=== PATIENT | female | born 1990 | race Caucasian/White ===

== ENCOUNTER 2016-06-13 03:05 | Inpatient (IN) | payer BC, MEDICAID ==
[~2016-06-13] VITALS: Ht 170.2 cm; Wt 109.5 kg
[2016-06-13] MEDS ORDERED: PREN-59 PO (03:24)
[2016-06-13] MEDS ORDERED: OXYTOCIN 30U/ 0.9% NaCL 500ML 500 ML IV ONE (03:25)
[2016-06-13] MEDS ORDERED: FENTANYL PF 100 MCG/2ML IVPush PRN (03:30)
[2016-06-13] MEDS ORDERED: FENTANYL PF 100 MCG/2ML IV PRN (03:30)
[2016-06-13] MEDS ORDERED: ONDANSETRON 2MG/ML, 2ML IVPush PRN ×2 (03:30→21:00)
[2016-06-13] MEDS ORDERED: TERBUTALINE 1 MG/ML, 1ML IVPush PRN (03:30)
[2016-06-13] MEDS ORDERED: CALCIUM CARBONATE 500 MG TAB.CHEW PO PRN ×2 (03:30→20:30)
[2016-06-13] MEDS: LACTATED RINGERS 1,000 ML IV SCH ×8 (03:35→20:49)
[2016-06-13 04:05] LABS: HEMOGLOBIN 10.4 g/dL (11.7-16.4)
[2016-06-13] MEDS ORDERED: NEWBORN KIT ONE (04:15)
[2016-06-13] MEDS ORDERED: OXYTOCIN 30U/ 0.9% NaCL 500ML 500 ML ONE (04:15)
[2016-06-13] MEDS: D5%-LACTATED RINGERS 1,000 ML IV SCH ×3 (07:14→19:25)
[2016-06-13] MEDS ORDERED: FENTANYL PF 100 MCG/2ML ONE ×2 (07:31→09:32)
[2016-06-13] MEDS ORDERED: LIDOCAINE 1%, 20ML ONE (07:32)
[2016-06-13] MEDS ORDERED: MISOPROSTOL 200 MCG TABLET ONE (07:32)
[2016-06-13] MEDS ORDERED: OXYTOCIN 30U/ 0.9% NaCL 500ML 500 ML IV PRN (08:50)
[2016-06-13] MEDS ORDERED: FENTANYL/BUPIV./NS/PF 250 ML EPIDCONT SCH (09:08)
[2016-06-13] MEDS: LACTATED RINGERS 1,000 ML IVBOLUS PRN ×2 (09:12→18:26)
[2016-06-13] MEDS ORDERED: BUPIVACAINE 0.25% ONE ×3 (09:32→18:56)
[2016-06-13] MEDS: AMPICILLIN 2 GM in SODIUM CHLORIDE 0.9% 100 ML IV SCH ×2 (16:53→23:00)
[2016-06-13] MEDS ORDERED: AMPICILLIN 2 GM in SODIUM CHLORIDE 0.9% 100 ML IV SCH (17:00)
[2016-06-13] MEDS: OXYTOCIN 30U/ 0.9% NaCL 500ML 500 ML IV SCH ×2 (19:01→20:16)
[2016-06-13] MEDS ORDERED: METOCLOPRAMIDE 5 MG/ML, 2ML ONE (19:02)
[2016-06-13] MEDS ORDERED: SODIUM CITRATE/CITRIC ACID 30 ML UDC ONE (19:02)
[2016-06-13] MEDS ORDERED: SODIUM CITRATE/CITRIC ACID 30 ML UDC PO ONE (19:30)
[2016-06-13] MEDS ORDERED: METOCLOPRAMIDE 5 MG/ML, 2ML IV ONE (19:30)
[2016-06-13] MEDS ORDERED: morphine SULFATE/PF 0.5 MG/ML, 10ML ONE (19:43)
[2016-06-13] MEDS ORDERED: MISOPROSTOL 200 MCG TABLET PR PRN (20:30)
[2016-06-13] MEDS ORDERED: ONDANSETRON 2MG/ML, 2ML IV PRN (20:30)
[2016-06-13] MEDS ORDERED: morphine SULFATE 10 MG/ML, 1ML IVPush PRN ×2 (20:30)
[2016-06-13] MEDS ORDERED: OXYcodone IR 5MG TABLET PO PRN (20:30)
[2016-06-13] MEDS ORDERED: MEPERIDINE/PF 50 MG/ML IVPush PRN (20:30)
[2016-06-13] MEDS: KETOROLAC 30 MG/1 ML IV SCH (20:30)
[2016-06-13] MEDS ORDERED: MEPERIDINE/PF 100 MG/ML IVPush PRN (20:30)
[2016-06-13] MEDS ORDERED: ACETAMINOPHEN 325 MG TABLET PO PRN ×2 (20:30)
[2016-06-13] MEDS ORDERED: METHYLERGONOVINE 0.2 MG/ML IM PRN (20:30)
[2016-06-13] MEDS ORDERED: KETOROLAC 30 MG/1 ML IV PRN (20:30)
[2016-06-13] MEDS ORDERED: NO SEDATIVES, TRANQUILIZERS OR ANTIEMETICS XX SCH (21:00)
[2016-06-13] MEDS ORDERED: KETOROLAC 30 MG/1 ML IVPush SCH (21:00)
[2016-06-13] MEDS ORDERED: DIPHENHYDRAMINE 50 MG/ML, 1ML IV PRN (21:00)
[2016-06-13] MEDS ORDERED: NALOXONE 0.4 MG/ML, 1ML IV PRN (21:00)
[2016-06-13] MEDS ORDERED: OXYcodone/APAP 5/325MG TABLET PO PRN (21:00)
[2016-06-13] MEDS ORDERED: HYDROmorphone 1 MG/ML, 1ML IVPush PRN (21:00)
[2016-06-13 21:52] VITALS: BP 118/71
[2016-06-14 01:08] VITALS: BP 120/73
[2016-06-14] MEDS: LACTATED RINGERS 1,000 ML IV SCH ×9 (01:08→20:16)
[2016-06-14 03:07] LABS: HEMOGLOBIN 8.9 g/dL (11.7-16.4)
[2016-06-14] MEDS: KETOROLAC 30 MG/1 ML IV SCH ×4 (04:05→23:00)
[2016-06-14 04:50] VITALS: BP 116/73
[2016-06-14] MEDS: OXYTOCIN 30U/ 0.9% NaCL 500ML 500 ML IV SCH ×4 (05:01→16:16)
[2016-06-14] MEDS: OXYcodone/APAP 5/325MG TABLET PO PRN ×5 (06:28→23:00)
[2016-06-14 07:45] VITALS: BP 115/62
[2016-06-14] MEDS: PRENATAL VIT/IRON/FA 1 EACH TABLET PO SCH (09:00)
[2016-06-14 12:30] VITALS: BP 109/65
[2016-06-14 16:30] VITALS: BP 103/64
[2016-06-14 20:00] VITALS: BP 102/70
[2016-06-14] MEDS: DOCUSATE 100 MG CAPSULE PO PRN (23:00)
[2016-06-15] MEDS: OXYTOCIN 30U/ 0.9% NaCL 500ML 500 ML IV SCH ×3 (01:01→11:01)
[2016-06-15] MEDS: LACTATED RINGERS 1,000 ML IV SCH ×4 (02:16→11:01)
[2016-06-15] MEDS: OXYcodone/APAP 5/325MG TABLET PO PRN ×7 (03:14→21:17)
[2016-06-15] MEDS: KETOROLAC 30 MG/1 ML IV SCH ×3 (04:31→17:12)
[2016-06-15 07:30] VITALS: BP 119/77
[2016-06-15] MEDS: PRENATAL VIT/IRON/FA 1 EACH TABLET PO SCH (08:44)
[2016-06-15] MEDS: DOCUSATE 100 MG CAPSULE PO PRN ×2 (08:45→21:17)
[2016-06-15 21:15] VITALS: BP 106/69
[2016-06-16] MEDS: OXYcodone/APAP 5/325MG TABLET PO PRN ×2 (02:14→06:30)
[2016-06-16] MEDS: IBUPROFEN 600 MG TABLET PO PRN ×2 (02:14→07:52)
[2016-06-16 06:07] VITALS: BP 116/73
[2016-06-16] MEDS: PRENATAL VIT/IRON/FA 1 EACH TABLET PO SCH (07:52)
[2016-06-16] MEDS: DOCUSATE 100 MG CAPSULE PO PRN (07:52)
[2016-06-16] MEDS ORDERED: OXYC-302 PO (09:32)
[2016-06-16] MEDS ORDERED: DOCU-30 PO (09:33)
[2016-06-16] MEDS ORDERED: IBUP-1222 PO (09:33)
== END 2016-06-16 17:01 | disposition home or self-care (01) | DRG 766 ==
LOC: LDOP 03:05 → LDIP 03:47 → 2NW 22:32
PROVIDERS: ADMIT Obstetrics & Gynecology; ATTEND Obstetrics & Gynecology
PROC: 10D00Z1 Extraction of Products of Conception, Low, Open Approach (ICD-10-PCS; principal; 2016-06-13)
DX: O42.92 Full-term premature rupture of membranes, unspecified as to length of time between rupture and onset of labor (principal); O62.1 Secondary uterine inertia; Z37.0 Single live birth; O48.0 Post-term pregnancy; Z3A.41 41 weeks gestation of pregnancy; O90.81 Anemia of the puerperium; D64.9 Anemia, unspecified
CPT/HCPCS: 36415; 85025; 86850; 86900; J0290; J1885; J2274; J3010; J1200; J2590; J2765; J7120; J7121